=== PATIENT | female | born 1975 | race Caucasian/White ===

== ENCOUNTER 2021-12-26 08:13 | Emergency (ER) | payer OTHER ==
[~2021-12-26 08:13] MED LIST: BACTROBAN CREAM15 GM TOP
[2021-12-26 09:00] LABS: HEMOGLOBIN 14.5 gm/dl (12.3-15.3); RED BLOOD COUNT 4.95 M/UL (4.00-5.10)
[2021-12-26 09:15] LABS: BUN/CREATININE RATIO 9 (0-10)
== END 2021-12-26 10:20 | disposition home or self-care (01) ==
LOC: ER1 08:13
PROVIDERS: Emergency Medicine
DX: R07.9 Chest pain, unspecified (principal); F41.9 Anxiety disorder, unspecified; F17.210 Nicotine dependence, cigarettes, uncomplicated; J44.9 Chronic obstructive pulmonary disease, unspecified; R07.89 Other chest pain
CPT/HCPCS: 71045; 80048; 82550; 82553; 83874; 84484; 85025; 93005; 96374; 99285; J1885